=== PATIENT | female | born 1990 | race Caucasian/White ===

== ENCOUNTER 2016-07-26 20:45 | Emergency (ER) | payer OTHER ==
[~2016-07-26] VITALS: Ht 160 cm; Wt 84.0 kg
[~2016-07-26 20:45] MED LIST: AMOXICILLIN500 MG PO; AUGMENTIN500TAB PO; AZITHROMYCIN500 MG PO; BACTRIM DS1 TAB PO; FERR SULFATE325 MG PO; FLEXERIL PO; IBUPROFEN600 MG PO; MACRODANTIN100 MG PO; MULTIVITAMIN GUMMIES PO; NAPROSYN500 MG PO; NO HOME MEDS; OBTREX DHA PO; PENICILLN VK500 MG PO; PERCOCET 10/31 COMBO PO; PRENATA3 PO; ULTRAM50 M1 PO; ZOFRAN ODT8 MG PO
[2016-07-26] MEDS ORDERED: AMOXICILLIN500 MG PO (21:34)
[2016-07-26 21:35] VITALS: BP 140/89
[2016-07-26 21:35] LABS: INFLUENZA A NONE DETECTED (NONE DETECT); INFLUENZA B NONE DETECTED (NONE DETECT)
== END 2016-07-26 21:38 | disposition home or self-care (01) | DRG 153 ==
LOC: ED 20:45
PROVIDERS: Emergency Medicine
DX: J02.9 Acute pharyngitis, unspecified (principal); F17.210 Nicotine dependence, cigarettes, uncomplicated; R50.9 Fever, unspecified; R05 Cough

== ENCOUNTER 2016-12-05 00:18 | Emergency (ER) | payer OTHER ==
[~2016-12-05] VITALS: Ht 160 cm; Wt 87.0 kg
[2016-12-05 01:13] LABS: HEMATOCRIT 33.4 % (37.0-47.0); IMMATURE GRANULOCYTES 0.4 % (0.0-1.0); MEAN CELL VOLUME 91.5 fL CALC (80.0-100.0); MEAN CORPUSCULAR HGB 30.1 pG CALC (26.0-32.0); MEAN CORPUSCULAR HGB CONC 32.9 g/L CALC (32.0-36.0); NEUT# 6.33 thou/uL (2.00-7.15); RED BLOOD COUNT 3.65 mill/uL (4.20-5.60); RED CELL DISTRI WIDTH 12.1 % (11.5-15.5)
[2016-12-05 01:21] LABS: URINE BILIRUBIN - DIPSTICK NEGATIVE (NEGATIVE); URINE BLOOD DIPSTICK LARGE (NEGATIVE); URINE CLARITY CLEAR; URINE COLOR YELLOW; URINE GLUCOSE - DIPSTICK NEGATIVE (NEGATIVE); URINE KETONE NEGATIVE (NEGATIVE); URINE LEUK ESTERASE TRACE (NEGATIVE); URINE NITRITE - DIPSTICK NEGATIVE (Negative); URINE PH 6.5 (4.5-8.0); URINE PROTEIN - DIPSTICK 100 mg/dL (NEG-TRACE); URINE SPECIFIC GRAVITY 1.025; URINE UROBILINOGEN - DIPSTICK 0.2 E.U./dL (0.2)
[2016-12-05 01:26] LABS: URINE RBC TNTC RBC/hpf (0-5); URINE SQUAMOUS EPITHELIAL CELL FEW EPI/hpf (0-FEW)
[2016-12-05 01:36] LABS: ALBUMIN 3.7 g/dL (3.2-5.0); ALKALINE PHOSPHATASE 68 u/l (38-126); BILIRUBIN, TOTAL 0.2 mg/dL (0.0-1.4); BUN 12 mg/dL (7-17); BUN/CREATININE RATIO 18 (12-20 (CALC)); CALCIUM 8.7 mg/dL (8.4-10.2); CARBON DIOXIDE 26 mmol/l (22-30); CHLORIDE 107 mmol/l (95-108); CREATININE 0.6 mg/dL (0.5-1.0); GFR > 60 ML/MIN (>=60 (CALC)); GFR FOR AFR.AMER. > 60 ML/MIN (>=60 (CALC)); GLUCOSE 105 mg/dL (65-105); SGOT/AST 17 u/l (14-36); SGPT/ALT 32 u/l (9-52); SODIUM 142 mmol/l (137-146); TOTAL PROTEIN 6.6 g/dL (6.3-8.2)
[2016-12-05 01:38] LABS: ANION GAP 13 (6-22 (CALC)); POTASSIUM 3.9 mmol/l (3.5-5.1)
[2016-12-05] MEDS ORDERED: CIPROFLOXACN500 MG PO (02:04)
[2016-12-05 02:23] VITALS: BP 130/72
== END 2016-12-05 02:22 | disposition home or self-care (01) | DRG 92 ==
LOC: ED 00:18
PROVIDERS: Emergency Medicine
DX: R20.0 Anesthesia of skin (principal); N39.0 Urinary tract infection, site not specified; M41.9 Scoliosis, unspecified; M54.9 Dorsalgia, unspecified; G89.29 Other chronic pain; F17.210 Nicotine dependence, cigarettes, uncomplicated

== ENCOUNTER 2017-06-01 22:06 | Emergency (ER) | payer SELFPAY ==
[~2017-06-01] VITALS: Ht 160 cm; Wt 81.0 kg
[~2017-06-01 22:06] MED LIST changes: +CIPROFLOXACN500 MG PO
[2017-06-01] MEDS ORDERED: AMOXICILLIN500 MG PO (22:44)
[2017-06-01 23:10] VITALS: BP 121/71
== END 2017-06-01 23:12 | disposition home or self-care (01) | DRG 605 ==
LOC: ED 22:06
DX: S91.332A Puncture wound without foreign body, left foot, initial encounter (principal); F17.210 Nicotine dependence, cigarettes, uncomplicated; W45.0XXA Nail entering through skin, initial encounter; Y93.89 Activity, other specified; Y92.007 Garden or yard of unspecified non-institutional (private) residence as the place of occurrence of the external cause

== ENCOUNTER 2018-02-11 23:49 | Emergency (ER) | payer SELFPAY ==
[~2018-02-11] VITALS: Ht 160 cm; Wt 63.6 kg
[2018-02-12 00:50] LABS: INFLUENZA A NONE DETECTED (NONE DETECT); INFLUENZA B NONE DETECTED (NONE DETECT)
[2018-02-12] MEDS ORDERED: GENTAMICIN0.3 % OS (01:02)
[2018-02-12] MEDS ORDERED: ALLERGY EYE DRO1 DRO OS (01:02)
[2018-02-12 01:10] VITALS: BP 130/82
== END 2018-02-12 01:12 | disposition home or self-care (01) | DRG 125 ==
LOC: ED 23:49
PROVIDERS: Emergency Medicine
DX: H10.32 Unspecified acute conjunctivitis, left eye (principal); H53.8 Other visual disturbances; R09.89 Other specified symptoms and signs involving the circulatory and respiratory systems

== ENCOUNTER 2018-05-21 23:47 | Emergency (ER) | payer SELFPAY ==
[~2018-05-21] VITALS: Ht 160 cm; Wt 68.1 kg
[~2018-05-21 23:47] MED LIST changes: +ALLERGY EYE DRO1 DRO OS; +GENTAMICIN0.3 % OS
[2018-05-22 01:53] VITALS: BP 127/66
== END 2018-05-22 01:57 | disposition home or self-care (01) | DRG 125 ==
LOC: ED 23:47
PROC: 0HQ1XZZ Repair Face Skin, External Approach (ICD-10-PCS; principal; 2018-05-22)
DX: S01.112A Laceration without foreign body of left eyelid and periocular area, initial encounter (principal); F17.210 Nicotine dependence, cigarettes, uncomplicated; Y00.XXXA Assault by blunt object, initial encounter; Y92.009 Unspecified place in unspecified non-institutional (private) residence as the place of occurrence of the external cause

== ENCOUNTER 2021-07-26 14:02 | Emergency (ER) | payer SELFPAY ==
[~2021-07-26] VITALS: Ht 160 cm; Wt 72.0 kg
[2021-07-26] VITALS (7 sets, daily range): BP systolic 105–124; BP diastolic 68–84
[2021-07-26] MEDS ORDERED: HYDROCO/APAP1 TA9 PO (14:59)
== END 2021-07-26 15:30 | disposition home or self-care (01) | DRG 159 ==
LOC: ED 14:02
DX: K02.9 Dental caries, unspecified (principal); F17.200 Nicotine dependence, unspecified, uncomplicated

== ENCOUNTER 2021-12-02 15:04 | Emergency (ER) | payer SELFPAY ==
[~2021-12-02] VITALS: Ht 160 cm; Wt 88.9 kg
[~2021-12-02 15:04] MED LIST changes: +HYDROCO/APAP1 TA9 PO
[2021-12-02] MEDS ORDERED: AMOXICILLIN500 M2 PO (16:02)
[2021-12-02 16:20] VITALS: BP 134/93
== END 2021-12-02 16:40 | disposition home or self-care (01) | DRG 153 ==
LOC: ED 15:04
DX: J02.9 Acute pharyngitis, unspecified (principal); F17.200 Nicotine dependence, unspecified, uncomplicated; Z20.822 Contact with and (suspected) exposure to COVID-19; Z20.2 Contact with and (suspected) exposure to infections with a predominantly sexual mode of transmission

== ENCOUNTER 2021-12-28 09:38 | Emergency (ER) | payer SELFPAY ==
[~2021-12-28] VITALS: Ht 160 cm; Wt 89.0 kg
[~2021-12-28 09:38] MED LIST changes: +AMOXICILLIN500 M2 PO
[2021-12-28 09:45] VITALS: BP 120/85
[2021-12-28] MEDS ORDERED: ZPAK PO (09:54)
[2021-12-28 10:01] VITALS: BP 100/63
[2021-12-28 10:31] VITALS: BP 116/67
[2021-12-28 10:34] LABS: HEMATOCRIT 36.8 % (37.0-47.0); HEMOGLOBIN 12.4 g/dl (12.0-16.0); IMMATURE GRANULOCYTES 0.2 % (0.0-5.0); MEAN CELL VOLUME 87.4 fL CALC (80.0-100.0); MEAN CORPUSCULAR HGB 29.5 pG CALC (26.0-32.0); MEAN CORPUSCULAR HGB CONC 33.7 g/dL CAL (32.0-36.0); NEUT# 5.99 thou/uL (2.00-7.15); RED BLOOD COUNT 4.21 mill/uL (4.20-5.60)
[2021-12-28 10:46] LABS: ALBUMIN 4.2 g/dL (3.2-5.0); ALKALINE PHOSPHATASE 87 u/l (38-126); ANION GAP 15 (6-22 (CALC)); BILIRUBIN, TOTAL 0.2 mg/dL (0.0-1.4); BUN 10 mg/dL (7-17); BUN/CREATININE RATIO 18 (12-20 (CALC)); CARBON DIOXIDE 25 mmol/l (22-30); CHLORIDE 106 mmol/l (95-108); CREATININE 0.6 mg/dL (0.5-1.0); GFR FOR AFR.AMER. > 60 ML/MIN (>=60 (CALC)); GFR OTHER RACES > 60 ML/MIN (>=60 (CALC)); POTASSIUM 4.1 mmol/l (3.5-5.1); SODIUM 143 mmol/l (137-146); TOTAL PROTEIN 7.9 g/dL (6.3-8.2)
[2021-12-28 11:00] VITALS: BP 112/78
[2021-12-28 11:17] LABS: SGOT/AST 63 u/l (14-36)
[2021-12-28 11:30] VITALS: BP 110/78
[2021-12-28] MEDS ORDERED: AMOX/K CLAV875 M1 PO (11:36)
[2021-12-28 11:37] VITALS: BP 110/78
== END 2021-12-28 11:56 | disposition home or self-care (01) | DRG 153 ==
LOC: ED 09:38
PROVIDERS: Family Medicine
DX: J06.9 Acute upper respiratory infection, unspecified (principal); F17.210 Nicotine dependence, cigarettes, uncomplicated; Z20.822 Contact with and (suspected) exposure to COVID-19

== ENCOUNTER 2022-10-26 18:38 | Emergency (ER) | payer SELFPAY ==
[2022-10-26] VITALS (10 sets, daily range): BP systolic 113–126; BP diastolic 72–92
[~2022-10-26] VITALS: Ht 160 cm; Wt 89.0 kg
[~2022-10-26 18:38] MED LIST changes: +AMOX/K CLAV875 M1 PO; +ZPAK PO
[2022-10-26 19:22] LABS: BASO% 0.2 % (0-3); EOS% 1.7 % (0-8); HEMATOCRIT 34.3 % (37.0-47.0); HEMOGLOBIN 10.8 g/dl (12.0-16.0); IMMATURE GRANULOCYTES 0.1 % (0.0-5.0); LYMPH% 27.6 % (15-41); MEAN CELL VOLUME 93.2 fL CALC (80.0-100.0); MEAN CORPUSCULAR HGB 29.3 pG CALC (26.0-32.0); MEAN CORPUSCULAR HGB CONC 31.5 g/dL CAL (32.0-36.0); MONO% 5.2 % (2-13); NEUT# 7.82 thou/uL (2.00-7.15); NEUT% 65.2 % (42-76); RED BLOOD COUNT 3.68 mill/uL (4.20-5.60); RED CELL DISTRI WIDTH 12.3 % (11.5-15.5)
[2022-10-26 19:31] LABS: ALBUMIN 3.8 g/dL (3.2-5.0); ALKALINE PHOSPHATASE 69 u/l (38-126); ANION GAP 8 (6-22 (CALC)); BILIRUBIN, TOTAL 0.2 mg/dL (0.02-1.3); BUN 13 mg/dL (7-17); BUN/CREATININE RATIO 18 (12-20 (CALC)); CARBON DIOXIDE 30 mmol/l (22-30); CHLORIDE 103 mmol/l (95-108); CREATININE 0.7 mg/dL (0.5-1.0); GFR FOR AFR.AMER. > 60 ML/MIN (>=60 (CALC)); GFR OTHER RACES > 60 ML/MIN (>=60 (CALC)); LIPASE 39 u/l (23-300); POTASSIUM 3.8 mmol/l (3.5-5.1); SGOT/AST 32 u/l (14-36); SODIUM 137 mmol/l (137-146); TOTAL PROTEIN 6.9 g/dL (6.3-8.2)
[2022-10-26] MEDS ORDERED: VENLAFAXINE H37.5 M1 PO (19:48)
[2022-10-26] MEDS ORDERED: ALPRAZOLAM1 MG PO (19:49)
== END 2022-10-26 21:00 | disposition home or self-care (01) | DRG 313 ==
LOC: ED 18:38
PROVIDERS: Nurse Practitioner
DX: R07.9 Chest pain, unspecified (principal); R06.02 Shortness of breath; T43.215A Adverse effect of selective serotonin and norepinephrine reuptake inhibitors, initial encounter; F41.9 Anxiety disorder, unspecified; F17.200 Nicotine dependence, unspecified, uncomplicated

== ENCOUNTER 2022-11-28 15:48 | Emergency (ER) | payer SELFPAY ==
[~2022-11-28] VITALS: Ht 160 cm; Wt 84.0 kg
[~2022-11-28 15:48] MED LIST changes: +ALPRAZOLAM1 MG PO; +VENLAFAXINE H37.5 M1 PO
[2022-11-28 17:23] VITALS: BP 130/79
[2022-11-28] MEDS ORDERED: MUPIROCIN21 TOP (17:29)
[2022-11-28] MEDS ORDERED: CEPHALEXIN500 MG PO (17:29)
[2022-11-28 17:30] VITALS: BP 129/89
[2022-11-28 17:45] VITALS: BP 133/91
[2022-11-28 18:08] VITALS: BP 133/91
== END 2022-11-28 18:00 | disposition home or self-care (01) | DRG 603 ==
LOC: ED 15:48
DX: L03.115 Cellulitis of right lower limb (principal); F17.290 Nicotine dependence, other tobacco product, uncomplicated

== ENCOUNTER 2023-11-26 13:47 | Emergency (ER) | payer SELFPAY ==
[~2023-11-26] VITALS: Ht 160 cm; Wt 65.8 kg
[2023-11-26] VITALS (16 sets, daily range): BP systolic 110–153; BP diastolic 64–98
[~2023-11-26 13:47] MED LIST changes: +CEPHALEXIN500 M1 PO; +CEPHALEXIN500 MG PO; +DOXY-CAPS100 MG PO; +METHOCARBAMOL500 MG PO; +MUPIROCIN21 TOP; +PERCOCET 5/321 COMBO PO
[2023-11-26] MEDS ORDERED: FAMOTIDINE 10MG/ML 2ML SDV IV ONE (14:00)
[2023-11-26] MEDS ORDERED: SODIUM CHLORIDE 0.9% 1,000 ML IV ONE (14:00)
[2023-11-26] MEDS ORDERED: methylPREDNISolone SODIUM SUCC 125 MG/2 ML SDV IV ONE (14:00)
[2023-11-26] MEDS ORDERED: ONDANSETRON HCl 4 MG/2 ML SDV IV ONE (14:00)
[2023-11-26] MEDS ORDERED: EPINEPHrine HCL 1 MG/ML AMP IM ONE (14:00)
[2023-11-26] MEDS ORDERED: DiphenhydrAMINE HCL 50 MG/ML SDV IV ONE (14:00)
[2023-11-26] MEDS ORDERED: KETOROLAC TROMETHAMINE 30 MG/ML SDV IV ONE (14:00)
[2023-11-26] MEDS ORDERED: MORPHINE SULFATE 4 MG/ML VIAL IV ONE (14:35)
[2023-11-26] MEDS ORDERED: HYDROmorphone HCL 2 MG/AMP IV ONE (15:40)
[2023-11-26] MEDS ORDERED: PREDNISONE50 MG PO (17:28)
[2023-11-26] MEDS ORDERED: EPIPEN 2-P0.3 MG/0.3 IM (17:28)
[2023-11-26] MEDS ORDERED: SB ALLERGY10 MG PO (17:28)
== END 2023-11-26 18:56 | disposition home or self-care (01) | DRG 918 ==
LOC: ED 13:47
DX: T63.431A Toxic effect of venom of caterpillars, accidental (unintentional), initial encounter (principal); T78.2XXA Anaphylactic shock, unspecified, initial encounter; F17.200 Nicotine dependence, unspecified, uncomplicated